=== PATIENT | male | born 2000 | race Caucasian/White ===

== ENCOUNTER 2024-12-22 19:28 | Emergency (ER) | payer OTHER, SELFPAY ==
[2024-12-22 19:31] VITALS: BP 131/83
[2024-12-22 21:11] LABS: Urine Character Clear (Clear)
--- NOTE | 2024-12-22 21:33 | ED.GENMED ---
History of Present Illness
General
Chief Complaint: Male Genito-Urinary Symptoms
Time Seen by Provider: 12/22/24 21:06
Nursing documentation reviewed up to this point in time: agreed with
History of Present Illness
History of Present Illness:
24 male presents the ER for evaluation of left-sided testicular pain. Patient states he has been experiencing it intermittently briefly over the past few days but persistently since this morning. He did feel it when he had been hopping in and out
of the cab of the truck the past few days but did not participate in this type of activity today. He denies any recent heavy lifting or straining. He denies any new sexual partners. He denies any dysuria or urinary frequency. No penile
discharge. No prior history of similar discomforts. He states that the pain has been waxing and waning in intensity but has been more consistent today. Pain is worse with walking. No direct injury or trauma. He does report a rash which he had
experienced last year and had been given a topical powder to use-he has not been applying any topical treatment to the rash at current. No flank pain although patient does report chronic lower back pain for which he sees a chiropractor-no change.
Phy Exam
Physical Exam
Physical Exam:
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
scrotum appears normal on visual external exam, mild soft swelling noted at apex of left testicle, no deformity or tenderness on palpation over this area, no other masses on palpatory exam, pain is not reproducible on exam, positive cremasterics
reflex bilaterally, no inguinal lymphadenopathy appreciated, no hernia palpated in the left groin, no CVA tenderness on exam, no midline pain on palpation of lumbar spine, circular hyperpigmented rash noted in midline and pubic hair without erythema
or induration, GCS is 15
Course
Orders/Labs/Results
Orders:
Orders
12/22/24 19:31
Scrotum US [US Scrotum] Urgent
Comment:
Reason For Exam: left testicular pain
12/22/24 21:02
Urinalysis Reflex To Culture Urgent
Date Specimen was Collected: 12/22/24
Time Specimen was Collected: 20:11
Chlamydia/GC by PCR Urgent
FABIAN Source: Urine
Specimen Description:
Source:: URINE
Date Specimen was Collected: 12/22/24
Time Specimen was Collected: 20:11
urinalysis is within normal limits
Vital Signs
Initial and Last Documented VS:
Initial Vital Signs
Temp Pulse Resp BP Pulse Ox
98.5 F 113 16 131/83 98
12/22/24 19:31 12/22/24 19:31 12/22/24 19:31 12/22/24 19:31 12/22/24 19:31
Last Documented Vital Signs
Temp Pulse Resp BP Pulse Ox
98.5 F 62 18 122/80 100
12/22/24 19:31 12/22/24 21:41 12/22/24 21:41 12/22/24 21:41 12/22/24 21:41
MDM/Problems Addressed
Differential Diagnosis Includes:
Differential diagnosis to consider but not limited to testicular torsion, groin strain, inguinal hernia, STI along with other etiologies considered
*Radiology
Radiology exam reviewed: radiology read reviewed (Left varicocele, otherwise normal exam, no evidence for torsion)
*Pulse Oximetry
SaO2: 98
Oxygen Mode of Delivery: Room air
Patient hypoxic: no
*Critical Care Note
Total Time (30-74mins, 75-104mins- exclusive of procedures): Not Applicable
Update Note
Update Note:
I discussed with patient all test results so far. Urine STI testing is still pending. I discussed with him present a varicocele although I am not convinced that this is specifically related to his pain. I discussed with him alternative causes of
symptoms including groin strain, early hernia, or possible intermittent torsion-ultrasound does not show any evidence of torsion today. I discussed with patient strict return precautions along with use of scrotal elevation and NSAIDs. I also
provided patient with local urology referral information. I also emphasized to patient benefit of follow-up with primary care physician for physical therapy referral for further management and prevention of his low back pain. Patient expressed
understanding will discharge instructions. He declined any analgesia prior to discharge and ambulated out of the department with a steady gait and no assistance.
ED Attending Note
-
Portions of this chart may have been created with voice recognition software.� Occasional wrong word or��sound alike� substitutions may have occurred due to the inherent limitations of voice recognition software.
Discharge Plan
Departure
Patient Disposition: Home (Routine Discharge)
Date of Disposition: 12/22/24
Time of Disposition: 21:30
Patient with high blood pressure during this ER visit?: No
Discharge Problem:
Left testicular pain, Left varicocele, Tinea corporis
Instructions: Hydrocele/Varicocele (DC), Fungal skin rash - ED (DC)
Referrals:
Eugene Kern MD [Active, Urology] - Next open appointment
Discharge Problem: Left testicular pain
UNKNOWN - PT DOES,NOT KNOW [Family Provider]
Activity Restrictions/Additional Instructions:
Use ibuprofen as available [id number] mg 3 times daily for the next 3 days. While you are not walking please elevate your scrotum with a folded washcloth to help with discomfort. Please contact urology office on Tuesday to schedule
appointment for reevaluation and further care. Please return to the ER for any worsening symptoms or concerns
Use [id number] antifungal powder spray on areas of rash as discussed
Interventions
Interventions:
*Risk Screen - Suicide Last Done: 12/22/24 19:31
*General Assessment Last Done: 12/22/24 19:31
*Neglect/Abuse Screening Last Done: 12/22/24 19:31
*ED- Fall Risk Assessment Last Done: 12/22/24 19:31
*ED COVID-19 Vaccine History Last Done: 12/22/24 19:31
*Nursing Disposition Last Done: 12/22/24 21:41
ED-Male Genitourinary Assessment Last Done: 12/22/24 21:06
Discharge Date and Time
Discharge Date/Time: 12/22/24 21:42
Print Language: DANISH
[2024-12-22 21:41] VITALS: BP 122/80
== END 2024-12-22 21:42 | disposition home or self-care (01) ==
LOC: EMR 19:28
PROVIDERS: Physician Assistant Medical; EMERGENCY PHYSICIAN Emergency Medicine
DX: I86.1 Scrotal varices (principal); N50.812 Left testicular pain; B35.4 Tinea corporis
CPT/HCPCS: 99284; 76870; 81003; 87491; 87591; 93976